=== PATIENT | female | born 1950 | race African-American/Black ===

== ENCOUNTER → 2021-08-12 | Outpatient (CLI) | payer MEDICARE ==
[~2021-08-12] MED LIST: DIATRIZOATE MEGL/DIATRIZOA SOD 30 ML BTL PO ONE; IOPAMIDOL 370 MG/ML 100 ML INFUS..BTL INJ ONE
[2021-08-12 08:37] LABS: CREATININE, SERUM 1.04 mg/dL (0.57-1.11)
== END ==
LOC: CT 07:48
PROVIDERS: ATTEND Internal Medicine Infectious Disease
DX: T81.89XA Other complications of procedures, not elsewhere classified, initial encounter (principal)
CPT/HCPCS: 36415; 74160; 82565; 84520; Q9967

== ENCOUNTER 2021-09-12 09:09 | Outpatient (RCR) | payer MEDICARE ==
[2021-09-12 15:04] LABS: BASOPHILS % 0.6 % (0.0-1.0); EOSINOPHILS # (AUTO) 0.1 (0.0-0.4); EOSINOPHILS % 1.3 % (0.0-6.0); HEMATOCRIT 36.6 % (34.2-44.1); HEMOGLOBIN 11.1 g/dL (12.0-16.0); LYMPHOCYTES # (AUTO) 2.1 (1.0-3.2); LYMPHOCYTES % 40.2 % (18.0-39.1); MEAN CORPUSCULAR HEMOGLOBIN 26.2 pg (28-32); MEAN CORPUSCULAR HGB CONC 30.3 g/dL (31-35); MEAN CORPUSCULAR VOLUME 86.5 fL (81-99); MONOCYTES # (AUTO) 0.4 (0.2-0.8); MONOCYTES % 7.5 % (4.4-11.3); NEUTROPHILS # (AUTO) 2.7 (2.1-6.9); NEUTROPHILS % 50.2 % (38.7-80.0); PLATELET COUNT 246 x10e3/uL (140-360); RED BLOOD COUNT 4.23 x10e6/uL (3.6-5.1); RED CELL DISTRIBUTION WIDTH 14.7 % (11.7-14.4)
[2021-09-12 15:57] LABS: ANION GAP 14.7 mmol/L (8-16); CALCIUM 8.9 mg/dL (8.4-10.2); CREATININE, SERUM 0.95 mg/dL (0.57-1.11); POTASSIUM 3.7 mmol/L (3.5-5.1)
== END 2021-09-25 ==
LOC: WCC 09:09
PROVIDERS: ATTEND Internal Medicine Infectious Disease
DX: T81.89XA Other complications of procedures, not elsewhere classified, initial encounter (principal); Y83.8 Other surgical procedures as the cause of abnormal reaction of the patient, or of later complication, without mention of misadventure at the time of the procedure; Y83.9 Surgical procedure, unspecified as the cause of abnormal reaction of the patient, or of later complication, without mention of misadventure at the time of the procedure; B99.8 Other infectious disease; A31.1 Cutaneous mycobacterial infection; I10 Essential (primary) hypertension; E03.9 Hypothyroidism, unspecified; F32.9 Major depressive disorder, single episode, unspecified; W03.XXXA Other fall on same level due to collision with another person, initial encounter
CPT/HCPCS: 36415; 80048; 84134; 85025; 87071; 87075; 87186; 87205

== ENCOUNTER 2021-10-10 11:26 | Outpatient (RCR) | payer MEDICARE ==
[2021-10-10] MEDS ORDERED: LIDOCAINE/PRILOCAINE 2.5-2.5% KIT ONE (11:41)
== END 2021-10-26 ==
LOC: WCC 11:26
PROVIDERS: ATTEND Internal Medicine Infectious Disease
DX: T81.89XD Other complications of procedures, not elsewhere classified, subsequent encounter (principal); Y83.8 Other surgical procedures as the cause of abnormal reaction of the patient, or of later complication, without mention of misadventure at the time of the procedure; Y83.9 Surgical procedure, unspecified as the cause of abnormal reaction of the patient, or of later complication, without mention of misadventure at the time of the procedure; I10 Essential (primary) hypertension; B99.8 Other infectious disease; A31.1 Cutaneous mycobacterial infection; E03.9 Hypothyroidism, unspecified; F32.9 Major depressive disorder, single episode, unspecified; W03.XXXA Other fall on same level due to collision with another person, initial encounter

== ENCOUNTER 2021-12-05 15:08 | Outpatient (RCR) | payer MEDICARE ==
[2021-12-05 11:49] LABS: BASOPHILS % 0.6 % (0.0-1.0); EOSINOPHILS # (AUTO) 0.1 (0.0-0.4); EOSINOPHILS % 1.7 % (0.0-6.0); HEMATOCRIT 35.2 % (34.2-44.1); HEMOGLOBIN 10.8 g/dL (12.0-16.0); LYMPHOCYTES # (AUTO) 1.9 (1.0-3.2); LYMPHOCYTES % 37.2 % (18.0-39.1); MEAN CORPUSCULAR HEMOGLOBIN 26.2 pg (28-32); MEAN CORPUSCULAR HGB CONC 30.7 g/dL (31-35); MEAN CORPUSCULAR VOLUME 85.4 fL (81-99); MONOCYTES # (AUTO) 0.3 (0.2-0.8); MONOCYTES % 6.1 % (4.4-11.3); NEUTROPHILS # (AUTO) 2.8 (2.1-6.9); NEUTROPHILS % 54.2 % (38.7-80.0); PLATELET COUNT 256 x10e3/uL (140-360); RED BLOOD COUNT 4.12 x10e6/uL (3.6-5.1); RED CELL DISTRIBUTION WIDTH 13.7 % (11.7-14.4)
[2021-12-05 12:08] LABS: ANION GAP 15.5 mmol/L (8-16); CALCIUM 8.9 mg/dL (8.4-10.2); CREATININE, SERUM 0.93 mg/dL (0.57-1.11); POTASSIUM 3.5 mmol/L (3.5-5.1)
[~2021-12-05 15:08] MED LIST changes: -DIATRIZOATE MEGL/DIATRIZOA SOD 30 ML BTL PO ONE; -IOPAMIDOL 370 MG/ML 100 ML INFUS..BTL INJ ONE; +LIDOCAINE VISC 2% SOLN 15 ML UDC ONE
== END 2021-12-26 ==
LOC: WCC 15:08
PROVIDERS: ATTEND Internal Medicine Infectious Disease
DX: T81.89XD Other complications of procedures, not elsewhere classified, subsequent encounter (principal); Y83.8 Other surgical procedures as the cause of abnormal reaction of the patient, or of later complication, without mention of misadventure at the time of the procedure; Y83.9 Surgical procedure, unspecified as the cause of abnormal reaction of the patient, or of later complication, without mention of misadventure at the time of the procedure; B99.8 Other infectious disease; I10 Essential (primary) hypertension; E03.9 Hypothyroidism, unspecified; A31.1 Cutaneous mycobacterial infection; F32.9 Major depressive disorder, single episode, unspecified; W03.XXXA Other fall on same level due to collision with another person, initial encounter
CPT/HCPCS: 36415; 80048; 85025

== ENCOUNTER 2022-01-09 14:32 | Outpatient (RCR) | payer MEDICARE | END 2022-01-26 | LOC: WCC 14:32 | PROVIDERS: ATTEND Internal Medicine Infectious Disease | DX: T81.89XD Other complications of procedures, not elsewhere classified, subsequent encounter (principal); Y83.8 Other surgical procedures as the cause of abnormal reaction of the patient, or of later complication, without mention of misadventure at the time of the procedure; Y83.9 Surgical procedure, unspecified as the cause of abnormal reaction of the patient, or of later complication, without mention of misadventure at the time of the procedure; B99.8 Other infectious disease; I10 Essential (primary) hypertension; E03.9 Hypothyroidism, unspecified; A31.1 Cutaneous mycobacterial infection; F32.9 Major depressive disorder, single episode, unspecified; W03.XXXA Other fall on same level due to collision with another person, initial encounter | CPT/HCPCS: 87071; 87075; 87186; 87205 ==

== ENCOUNTER 2022-01-30 09:38 | Outpatient (RCR) | payer MEDICARE | END 2022-02-25 | LOC: WCC 09:38 | PROVIDERS: ATTEND Internal Medicine Infectious Disease | DX: T81.89XD Other complications of procedures, not elsewhere classified, subsequent encounter (principal); Y83.8 Other surgical procedures as the cause of abnormal reaction of the patient, or of later complication, without mention of misadventure at the time of the procedure; Y83.9 Surgical procedure, unspecified as the cause of abnormal reaction of the patient, or of later complication, without mention of misadventure at the time of the procedure; I10 Essential (primary) hypertension; E03.9 Hypothyroidism, unspecified; B99.8 Other infectious disease; A31.1 Cutaneous mycobacterial infection; F32.9 Major depressive disorder, single episode, unspecified; W03.XXXA Other fall on same level due to collision with another person, initial encounter ==